=== PATIENT | female | born 1985 | race Caucasian/White ===

== ENCOUNTER 2017-10-10 16:44 | Emergency (ER) | payer OTHER ==
[~2017-10-10] VITALS: Ht 154.9 cm; Wt 63.5 kg
[~2017-10-10 16:44] MED LIST: BUCALSEP SPRAY30 ML MM; ENALAPRILA IV; LANOXIN0.25 MG PO; LEVAQUIN750 MG PO
[2017-10-11] MEDS ORDERED: SYMBICORT 16010.2 GM IH (01:57)
[2017-10-11] MEDS ORDERED: XOPENEX0.63 MG/3 IH (01:57)
[2017-10-11] MEDS ORDERED: ZYNCOF 20-400120 ML PO (01:57)
== END 2017-10-11 02:05 | disposition home or self-care (01) ==
LOC: ER 16:44
DX: J45.998 Other asthma (principal)

== ENCOUNTER 2022-09-27 15:09 | Outpatient (CLI) | payer OTHER ==
[~2022-09-27 15:09] MED LIST changes: +SYMBICORT 16010.2 GM IH; +XOPENEX0.63 MG/3 IH; +ZYNCOF 20-400120 ML PO
== END 2022-09-27 15:15 | disposition home or self-care (01) ==
LOC: RAD 15:09
DX: R05.8 Other specified cough (principal)